=== PATIENT | male | born 1985 | race Two or more races ===

== ENCOUNTER 2018-11-10 20:57 | Emergency (ER) | payer SELFPAY ==
[~2018-11-10] VITALS: Ht 177.8 cm; Wt 90.0 kg
--- NOTE | 2018-11-10 21:06 | NUR ---
pt biba; report taken from EMS. pt had glf this pm; pt slipped and felt left knee "pop" with subsequent pain; pt had surgery to left knee 2 weeks ago. fentanyl 100mcg and zofran 4 mg given sloop captain. swelling noted to left knee, cms intact to left LE. bp and spo2 monitors in place. call light in reach. awaiting MD and orders at this time.
[2018-11-10] MEDS ORDERED: HYDROmorphone 1 MG/ML, 1ML IV ONE (21:30)
[2018-11-10] MEDS ORDERED: HYDROmorphone 1 MG/ML, 1ML ONE (21:34)
--- NOTE | 2018-11-10 21:38 | NUR ---
pt medicated per emar, tolerating well. spo2 93% on room air, oxygen applied at 2L/min s/p dilaudid admin. call light in reach. bp and spo2 monitors in place. pt remains a&o, resps even and unlabored.
[2018-11-10] MEDS ORDERED: OXYcodone/APAP 10/325MG TABLET ONE (22:39)
--- NOTE | 2018-11-10 22:55 | NUR ---
pt reports dilaudid "did not help at all" but pt appears more calm and comfortable in bed. EDMD notified. pt medicated per emar, tolerated well. pt to be discharged once pain in control. bp and spo2 monitors in place. spouse at bedside. pt remains a&o, resps even and unlabored, nadn at this time.
[2018-11-10] MEDS ORDERED: OXYcodone/APAP 10/325MG TABLET PO ONE (23:00)
[2018-11-10] MEDS ORDERED: KETOROLAC 30 MG/1 ML IVPush ONE (23:00)
[2018-11-10] MEDS ORDERED: KETOROLAC 30 MG/1 ML ONE (23:01)
--- NOTE | 2018-11-10 23:09 | NUR ---
KNEE IMMOBILIZER APPLIED BY EDT, PT PROVIDED WITH FITTED CRUTCHES.
[2018-11-10 23:36] VITALS: BP 115/77
--- NOTE | 2018-11-10 23:36 | NUR ---
pt reports pain level tolerable at this time. pt a&o, resps even and unlabored. pt requesting dc. DAVY Bensoner notified.
--- NOTE | 2018-11-10 23:55 | NUR ---
PT GIVEN DC INSTRUCTIONS AND SCRIPT. PT EDUCATED REGARDING DC RX FOR PERCOCET. PT EDUCATED REGARDING CRUTCH USE AND ORTHO CARE AND FOLLOW UP. PT DEMONSTRATES APPROPRIATE USE OF CRUTCHES. PT EDUCATED NOT TO DRIVE D/T MEDS GIVEN. PT A&O, RESPS EVEN AND UNLABORED, NADN AT THIS TIME. PT TO DC DESK ACCOMPANIED BY S/O AND COUSIN WHO IS TO DRIVE HIM HOME.
== END 2018-11-11 | disposition home or self-care (01) ==
LOC: ED 23:50
DX: S83.92XA Sprain of unspecified site of left knee, initial encounter (principal); M25.062 Hemarthrosis, left knee; W00.0XXA Fall on same level due to ice and snow, initial encounter; Y93.01 Activity, walking, marching and hiking; Y92.89 Other specified places as the place of occurrence of the external cause; Y99.8 Other external cause status
CPT/HCPCS: 29505; 73564; 96374; 96375; 99283; J1170; J1885